=== PATIENT | female | born 1940 | race Two or more races ===

== ENCOUNTER 2023-05-24 11:12 | Inpatient (IN) | payer OTHER, BC ==
[~2023-05-24] VITALS: Ht 170.2 cm; Wt 61.2 kg
[2023-05-24 11:23] VITALS: BP 111/68; PULSE 87; RESP 20; TEMP 97.3; O2SAT 98
[2023-05-24 12:40] LABS: BASOPHILS # (AUTO) 0.1 K/uL (0.00-0.22); BASOPHILS % (AUTO) 1.3 % (0.0-2.0); EOSINOPHILS # (AUTO) 0.1 K/uL (0-0.4); EOSINOPHILS % (AUTO) 1.7 % (0.0-4.0); HEMATOCRIT 27.8 % (36-48); HEMOGLOBIN 9.5 g/dL (12.0-16.0); LYMPHOCYTES # (AUTO) 1.2 K/uL (2.5-16.5); LYMPHOCYTES % (AUTO) 14.1 % (20.5-51.1); MEAN CORPUSCULAR HEMOGLOBIN 33 pg (27-31); MEAN CORPUSCULAR HGB CONC 34 g/dL (33-37); MEAN CORPUSCULAR VOLUME 95.7 fL (80-94); MONOCYTES # (AUTO) 0.4 K/uL (0.8-1.0); MONOCYTES % (AUTO) 4.3 % (1.7-9.3); NEUTROPHILS # (AUTO) 6.7 K/uL (1.8-7.7); NEUTROPHILS % (AUTO) 78.6 % (42.2-75.2); PLATELET COUNT (AUTO) 216 K/uL (140-450); WHITE BLOOD COUNT (AUTO) 8.6 K/uL (4.8-10.8)
[2023-05-24 12:42] LABS: ALANINE AMINOTRANSFERASE 5 U/L (12-78); ALBUMIN 2.5 g/dL (3.4-5.0); ALKALINE PHOSPHATASE 57 U/L (50-136); ASPARTATE AMINOTRANSFERASE 14 U/L (15-37); BILIRUBIN,DIRECT 0.2 mg/dL (0.0-0.3); TOTAL BILIRUBIN 0.9 mg/dL (0.0-1.0); TOTAL PROTEIN, SERUM 5.9 g/dL (6.4-8.2)
[2023-05-24 12:57] LABS: ANION GAP 11.1 (8-16); CALCIUM 8.3 mg/dL (8.5-10.1); CARBON DIOXIDE 26.8 mmol/L (21-32); CHLORIDE 99 mmol/L (98-107); GLUCOSE 124 mg/dL (74-106); POTASSIUM 3.9 mmol/L (3.5-5.1); SODIUM SERUM 133 mmol/L (136-145); UREA NITROGEN, BLOOD 21 mg/dL (7-18)
[2023-05-24] MEDS ORDERED: AZITHROMYCIN 500 MG INJ VIAL IV ONE (13:32)
[2023-05-24] MEDS ORDERED: cefTRIAXone 1,000 MG VIAL ONE (13:32)
[2023-05-24] MEDS: AZITHROMYCIN 500 MG in DEXTROSE 5% 250 ML IV ONE (13:54)
[2023-05-24 14:05] LABS: LACTIC ACID 1.1 mmol/L (0.4-2.0)
[2023-05-24] MEDS ORDERED: MORPHINE SULFATE 2 MG/ML SYR IVP PRN (15:10)
[2023-05-24] MEDS ORDERED: KCL 20 MEQ IN 100 mL PREMIX 200 ML IV PRN (15:10)
[2023-05-24] MEDS ORDERED: POLYETHYLENE GLYCOL 17 GM/PKT PO PRN (15:10)
[2023-05-24] MEDS ORDERED: ONDANSETRON 4 MG/2 ML VIAL IVP PRN (15:10)
[2023-05-24] MEDS ORDERED: MAG SULF 2000 MG/WATER PREMIX 50 ML IV PRN (15:10)
[2023-05-24] MEDS ORDERED: HYDROcodone/APAP 5/325 MG 1 TAB TAB PO PRN (15:10)
[2023-05-24] MEDS ORDERED: ACETAMINOPHEN 325 MG TAB PO PRN (15:10)
[2023-05-24] MEDS ORDERED: BISA-218 RC (15:21)
[2023-05-24] MEDS ORDERED: HYDR-1098 PO (15:21)
[2023-05-24] MEDS ORDERED: NUTR887L9 PO (15:21)
[2023-05-24] MEDS ORDERED: BREX0.5T PO (15:21)
[2023-05-24] MEDS ORDERED: DOCU-299 PO (15:21)
[2023-05-24] MEDS ORDERED: [UNRECOGNIZED DRUG - OTHER] PO (15:21)
[2023-05-24] MEDS ORDERED: ASCO500T95 PO (15:21)
[2023-05-24] MEDS ORDERED: ZINC220T3 PO (15:21)
[2023-05-24] MEDS ORDERED: APIX5TAB PO (15:21)
[2023-05-24] MEDS ORDERED: ACET-9527 PO (15:21)
[2023-05-24] MEDS ORDERED: SITA100T8 PO (15:21)
[2023-05-24] MEDS ORDERED: CLON0.5T PO (15:21)
[2023-05-24] MEDS ORDERED: POTA10TA81 PO (15:21)
[2023-05-24] MEDS ORDERED: INSU100S5 SUBQ (15:21)
[2023-05-24] MEDS ORDERED: CARV12.5 PO (15:21)
[2023-05-24] MEDS ORDERED: MAGN400S60 PO (15:21)
[2023-05-24] MEDS ORDERED: HYDR500C PO (15:21)
[2023-05-24] MEDS ORDERED: D50SYR IV (15:21)
[2023-05-24] MEDS ORDERED: QUET25TA PO (15:21)
[2023-05-24] MEDS ORDERED: DAPA5TAB PO (15:21)
[2023-05-24] MEDS ORDERED: INSU100S22 SUBQ (15:21)
[2023-05-24] MEDS ORDERED: GLUC1PDS1 IM (15:21)
[2023-05-24] MEDS ORDERED: ACET-2619 PO (15:21)
[2023-05-24] MEDS ORDERED: POTA10TA70 PO (15:21)
[2023-05-24] MEDS ORDERED: SYN.05 PO (15:21)
[2023-05-24] MEDS ORDERED: SENN-73 PO (15:21)
[2023-05-24] MEDS ORDERED: PANT40EC PO (15:21)
[2023-05-24 15:40] VITALS: PULSE 73; RESP 18; O2SAT 100
[2023-05-24 16:00] VITALS: BP 115/67; PULSE 73; RESP 19; TEMP 97.1; O2SAT 100
[2023-05-24] MEDS ORDERED: DEXTROSE 50% 50 ML SYR IVP PRN (17:25)
[2023-05-24] MEDS: NACL 0.45% 1,000 ML IV SCH (18:25)
[2023-05-24 19:07] LABS: FLU A ANTIGEN negative (NEGATIVE); FLU B ANTIGEN NEGATIVE (NEGATIVE); RSV NEGATIVE (NEGATIVE)
[2023-05-24 20:00] VITALS: BP 116/68; PULSE 83; RESP 18; RESP 19; TEMP 96.8; O2SAT 99
[2023-05-24] MEDS: BLOOD GLUCOSE MONITORING 1 DEV DEV FS SCH (22:30)
[2023-05-24] MEDS: hydrALAZINE 25 MG TAB PO SCH (22:46)
[2023-05-24] MEDS: QUEtiapine FUMARATE 25 MG TAB PO SCH (22:47)
[2023-05-24] MEDS: carvediloL 12.5 MG TAB PO SCH (22:47)
[2023-05-24] MEDS: APIXABAN 2.5 MG TAB PO SCH (22:49)
[2023-05-24] MEDS: MELATONIN 3 MG TAB PO PRN (22:52)
[2023-05-24 23:09] VITALS: O2SAT 98
[2023-05-24 23:37] VITALS: O2SAT 96
[2023-05-25] VITALS (7 sets, daily range): BP systolic 102–138; BP diastolic 61–79; PULSE 71–83; RESP 18–20; TEMP 97–98; O2SAT 95–99
[2023-05-25] MEDS: PANTOPRAZOLE 40 MG TABEC PO SCH (10:31)
[2023-05-25] MEDS: LEVOTHYROXINE 0.05 MG TAB PO SCH (10:31)
[2023-05-25] MEDS: clonazePAM 0.5 MG TAB PO SCH (10:33)
[2023-05-25] MEDS: AZITHROMYCIN 500 MG in DEXTROSE 5% 250 ML IV SCH (10:34)
[2023-05-25] MEDS ORDERED: POTASSIUM CHLORIDE 10 MEQ TABER PO PRN (18:35)
[2023-05-25 20:55] LABS: BASOPHILS # (AUTO) 0.2 K/uL (0.00-0.22); BASOPHILS % (AUTO) 2.1 % (0.0-2.0); EOSINOPHILS # (AUTO) 0.2 K/uL (0-0.4); EOSINOPHILS % (AUTO) 3.2 % (0.0-4.0); HEMOGLOBIN 9.7 g/dL (12.0-16.0); LYMPHOCYTES # (AUTO) 1.3 K/uL (2.5-16.5); LYMPHOCYTES % (AUTO) 17.6 % (20.5-51.1); MEAN CORPUSCULAR HEMOGLOBIN 33 pg (27-31); MEAN CORPUSCULAR HGB CONC 33 g/dL (33-37); MEAN CORPUSCULAR VOLUME 98.3 fL (80-94); MONOCYTES # (AUTO) 0.4 K/uL (0.8-1.0); MONOCYTES % (AUTO) 6.1 % (1.7-9.3); NEUTROPHILS # (AUTO) 5.2 K/uL (1.8-7.7); PLATELET COUNT (AUTO) 189 K/uL (140-450); RED BLOOD CELL COUNT(AUTO) 2.95 MIL/uL (4.20-5.40); RED CELL DISTRIBUTION WIDTH 19.6 % (11.6-13.7); WHITE BLOOD COUNT (AUTO) 7.3 K/uL (4.8-10.8)
[2023-05-25 21:09] LABS: ALANINE AMINOTRANSFERASE 3 U/L (12-78); ALBUMIN 2.4 g/dL (3.4-5.0); ALKALINE PHOSPHATASE 58 U/L (50-136); ASPARTATE AMINOTRANSFERASE 13 U/L (15-37); CALCIUM 8.1 mg/dL (8.5-10.1); CARBON DIOXIDE 27.2 mmol/L (21-32); CHLORIDE 99 mmol/L (98-107); GLUCOSE 141 mg/dL (74-106); MAGNESIUM 1.8 mg/dL (1.8-2.4); PHOSPHORUS 3.5 mg/dL (2.5-4.9); POTASSIUM 4.2 mmol/L (3.5-5.1); SODIUM SERUM 134 mmol/L (136-145); TOTAL BILIRUBIN 0.5 mg/dL (0.0-1.0); TOTAL PROTEIN, SERUM 5.8 g/dL (6.4-8.2); UREA NITROGEN, BLOOD 19 mg/dL (7-18)
[2023-05-26] VITALS (10 sets, daily range): BP systolic 123–147; BP diastolic 74–92; PULSE 68–93; RESP 16–20; TEMP 97–98.2; O2SAT 96–100
[2023-05-26 06:00] LABS: BASOPHILS # (AUTO) 0.2 K/uL (0.00-0.22); BASOPHILS % (AUTO) 1.9 % (0.0-2.0); EOSINOPHILS # (AUTO) 0.3 K/uL (0-0.4); EOSINOPHILS % (AUTO) 4.1 % (0.0-4.0); HEMATOCRIT 30.4 % (36-48); HEMOGLOBIN 10.2 g/dL (12.0-16.0); LYMPHOCYTES # (AUTO) 1.5 K/uL (2.5-16.5); LYMPHOCYTES % (AUTO) 18.3 % (20.5-51.1); MEAN CORPUSCULAR HEMOGLOBIN 33 pg (27-31); MEAN CORPUSCULAR HGB CONC 34 g/dL (33-37); MEAN CORPUSCULAR VOLUME 96.8 fL (80-94); MONOCYTES # (AUTO) 0.5 K/uL (0.8-1.0); MONOCYTES % (AUTO) 6.2 % (1.7-9.3); NEUTROPHILS # (AUTO) 5.8 K/uL (1.8-7.7); NEUTROPHILS % (AUTO) 69.5 % (42.2-75.2); PLATELET COUNT (AUTO) 248 K/uL (140-450); RED BLOOD CELL COUNT(AUTO) 3.14 MIL/uL (4.20-5.40); RED CELL DISTRIBUTION WIDTH 19.9 % (11.6-13.7); WHITE BLOOD COUNT (AUTO) 8.3 K/uL (4.8-10.8)
[2023-05-26 06:14] LABS: ALBUMIN 2.6 g/dL (3.4-5.0); ALKALINE PHOSPHATASE 60 U/L (50-136); ASPARTATE AMINOTRANSFERASE 12 U/L (15-37); CALCIUM 8.4 mg/dL (8.5-10.1); CARBON DIOXIDE 29.8 mmol/L (21-32); CHLORIDE 100 mmol/L (98-107); CREATININE 1.1 mg/dL (0.6-1.3); GLUCOSE 107 mg/dL (74-106); MAGNESIUM 1.8 mg/dL (1.8-2.4); PHOSPHORUS 3.2 mg/dL (2.5-4.9); POTASSIUM 3.8 mmol/L (3.5-5.1); SODIUM SERUM 136 mmol/L (136-145); TOTAL BILIRUBIN 0.7 mg/dL (0.0-1.0); TOTAL PROTEIN, SERUM 6.2 g/dL (6.4-8.2); UREA NITROGEN, BLOOD 18 mg/dL (7-18)
[2023-05-26 06:40] LABS: ALANINE AMINOTRANSFERASE 4 U/L (12-78)
[2023-05-26] MEDS: INSULIN LISPRO SLIDING SCALE 100 UNITS/ML VIAL SUBQ PRN (12:18)
[2023-05-26] MEDS ORDERED: HYDR-5191 PO (18:42)
[2023-05-27] VITALS (8 sets, daily range): BP systolic 96–152; BP diastolic 53–79; PULSE 68–82; RESP 18–24; TEMP 97.1–98.9; O2SAT 94–98
[2023-05-27 05:38] LABS: BASOPHILS # (AUTO) 0.1 K/uL (0.00-0.22); BASOPHILS % (AUTO) 1.3 % (0.0-2.0); EOSINOPHILS # (AUTO) 0.2 K/uL (0-0.4); EOSINOPHILS % (AUTO) 4.2 % (0.0-4.0); HEMATOCRIT 25.9 % (36-48); HEMOGLOBIN 8.8 g/dL (12.0-16.0); LYMPHOCYTES # (AUTO) 1.1 K/uL (2.5-16.5); LYMPHOCYTES % (AUTO) 19.8 % (20.5-51.1); MEAN CORPUSCULAR HEMOGLOBIN 33 pg (27-31); MEAN CORPUSCULAR HGB CONC 34 g/dL (33-37); MEAN CORPUSCULAR VOLUME 95.6 fL (80-94); MONOCYTES # (AUTO) 0.4 K/uL (0.8-1.0); MONOCYTES % (AUTO) 6.8 % (1.7-9.3); NEUTROPHILS # (AUTO) 3.9 K/uL (1.8-7.7); NEUTROPHILS % (AUTO) 67.9 % (42.2-75.2); PLATELET COUNT (AUTO) 182 K/uL (140-450); RED BLOOD CELL COUNT(AUTO) 2.71 MIL/uL (4.20-5.40); RED CELL DISTRIBUTION WIDTH 19.6 % (11.6-13.7); WHITE BLOOD COUNT (AUTO) 5.8 K/uL (4.8-10.8)
[2023-05-27 06:33] LABS: CHLORIDE 102 mmol/L (98-107); POTASSIUM 3.7 mmol/L (3.5-5.1); SODIUM SERUM 137 mmol/L (136-145)
[2023-05-27 06:34] LABS: ANION GAP 9.6 (8-16); CALCIUM 8.1 mg/dL (8.5-10.1); CARBON DIOXIDE 29.1 mmol/L (21-32); CREATININE 0.9 mg/dL (0.6-1.3); GLUCOSE 130 mg/dL (74-106); UREA NITROGEN, BLOOD 13 mg/dL (7-18)
[2023-05-27 06:35] LABS: ALKALINE PHOSPHATASE 54 U/L (50-136); ASPARTATE AMINOTRANSFERASE 13 U/L (15-37)
[2023-05-27 07:25] LABS: TOTAL BILIRUBIN 0.6 mg/dL (0.0-1.0)
[2023-05-27 07:26] LABS: ALANINE AMINOTRANSFERASE 4 U/L (12-78); ALBUMIN 2.4 g/dL (3.4-5.0); MAGNESIUM 1.8 mg/dL (1.8-2.4); PHOSPHORUS 2.9 mg/dL (2.5-4.9); TOTAL PROTEIN, SERUM 5.7 g/dL (6.4-8.2)
[2023-05-27] MEDS: IPRATROPIUM 0.02% 0.5 MG/2.5 ML NEBU INH PRN (08:08)
[2023-05-27] MEDS: ALBUTEROL 0.083% 2.5 MG/3 ML NEBU INH PRN (08:08)
[2023-05-27] MEDS ORDERED: MUC600 PO (12:43)
[2023-05-27] MEDS ORDERED: LEVO750T75 PO (12:43)
[2023-05-27] MEDS: ALBUTEROL SULFATE/IPRATROPIU 3 ML SOL IH SCH (13:41)
[2023-05-28] MEDS ORDERED: LEVOTHYROXINE 0.025 MG TAB PO SCH (06:30)
== END 2023-05-27 19:24 | DRG 177 ==
LOC: MED 11:12 → MTU 14:07
PROVIDERS: ADMIT Family Medicine; ATTEND Family Medicine
DX: J15.69 Pneumonia due to other Gram-negative bacteria (principal); J96.01 Acute respiratory failure with hypoxia; J15.9 Unspecified bacterial pneumonia; Z20.822 Contact with and (suspected) exposure to COVID-19; I10 Essential (primary) hypertension; I48.91 Unspecified atrial fibrillation; E03.9 Hypothyroidism, unspecified; E11.9 Type 2 diabetes mellitus without complications; F41.9 Anxiety disorder, unspecified; F03.90 Unspecified dementia, unspecified severity, without behavioral disturbance, psychotic disturbance, mood disturbance, and anxiety; D45 Polycythemia vera; Z88.6 Allergy status to analgesic agent
CPT/HCPCS: 36415; 71045; 80048; 80053; 80076; 82948; 83605; 83735; 83880; 84100; 84484; 85025; 85379; 87040; 87081; 87420; 93005; 94640; 96365; 96367; 97110; 97116; 97163-GP; 97530; 99285; J0456; J0696; J1815; J7060; J7613; J7644; Q0092